=== PATIENT | male | born 1935 | race Caucasian/White ===

== ENCOUNTER 2018-12-11 06:11 | Day surgery (SDC) | payer MEDICARE, BC ==
[~2018-12-11] VITALS: Ht 175.3 cm; Wt 86.0 kg
[~2018-12-11 06:11] MED LIST: CENTRUM SILVER1 EAC2 PO; FISH OIL 1,001000 MG PO; Magnesium200 MG PO; PROBIOTIC1 EAC1 PO
--- NOTE | 2018-12-11 09:32 | NUR ---
PT TO RECOVERY ROOM POST PROCEDURE VIA RECLINER. PT AWAKE, ORIENTED AND ANSWERING QUESTIONS APPROPRIATELY. PT DENIES PAIN/DISCOMFORT, SOB OR NAUSEA. MONITOR V PACED 60'S, B/P 159/84, SPO2 96% RA. L CHEST PACEMKAER SITE, NO SWELLING/HEMATOMA, PRESSURE DRSG IN PLACE C,D,I. PT TAKING SIPS OF H2O WITHOUT PROBLEM.
--- NOTE | 2018-12-11 11:50 | NUR ---
DRESSED SELF WITHOUT PROBELM, PRESSURE DRESSING REMOVED, SITE SOFT, NO DRAINAGE. PT RECEIVED DISCHARGE INSTRUCTIONS, MED LIST, AND SUPPLEMENTAL EDUCATION RESOURCES; VERBALIZED GOOD UNDERSTANDING.
--- NOTE | 2018-12-11 12:14 | NUR ---
HERE TO PROGRAMMER NUMERICAL CONTROL PT, DISCHARGE INSTRUCTIONS REVIEWED WITH PT AND ; IV REMOVED; CANNULA INTACT. PT LEFT FACILITY VIA W/C WITH , CONDITION STABLE.
== END 2018-12-11 12:14 | disposition home or self-care (01) ==
LOC: MHTC 06:11
DX: I44.2 Atrioventricular block, complete (principal); Z79.899 Other long term (current) drug therapy
CPT/HCPCS: 33207; 33208; 71046; 93005; 93010; 99152; 99153; C1785; C1898; J0690; J1644; J2250; J3010; J7030; J7040

== ENCOUNTER 2019-02-24 07:43 | Day surgery (SDC) | payer MEDICARE, BC ==
[~2019-02-24] VITALS: Ht 175.3 cm; Wt 86.3 kg
[2019-02-24] MEDS ORDERED: Amiodarone HCl200 MG PO (09:02)
[2019-02-24] MEDS ORDERED: ELIQUIS5 MG PO (09:02)
--- NOTE | 2019-02-24 10:54 | NUR ---
PT ALERT, AWAKE, AND TALKING TO STAFF. PRESENT IN ROOM. SALINE LOCK OUT WITH CATHETER INTACT. DISCHARGE GONE OVER WITH AND PT, BOTH VERBALIZE UNDERSTANDING. VSS. PT TO PRIVATE VEHICLE PER W/C WITH ONE STAFF.
== END 2019-02-24 22:44 | disposition home or self-care (01) ==
LOC: MHTC 07:43
DX: I48.92 Unspecified atrial flutter (principal); I48.91 Unspecified atrial fibrillation; J90 Pleural effusion, not elsewhere classified; I44.2 Atrioventricular block, complete; Z79.01 Long term (current) use of anticoagulants; Z95.0 Presence of cardiac pacemaker
CPT/HCPCS: 92960; 93005; 93010; J2250; J2704; J7030

== ENCOUNTER 2020-10-14 10:21 | Day surgery (SDC) | payer MEDICARE, BC ==
[~2020-10-14] VITALS: Ht 172.7 cm; Wt 88.3 kg
[~2020-10-14 10:21] MED LIST changes: +Amiodarone HCl200 MG PO; +ELIQUIS5 MG PO
--- NOTE | 2020-10-14 10:47 | NUR ---
10/14/20 1047 Patria Hernadez [address] 1042 PLEDGET BOTH PLACED BY [facility].CB
== END 2020-10-14 12:24 | disposition home or self-care (01) ==
LOC: ORSCSDS 10:21
PROVIDERS: Ophthalmology
PROC: 08RK3JZ Replacement of Left Lens with Synthetic Substitute, Percutaneous Approach (ICD-10-PCS; principal; 2020-10-14 11:45)
DX: H25.12 Age-related nuclear cataract, left eye (principal); H21.81 Floppy iris syndrome; Z87.891 Personal history of nicotine dependence
CPT/HCPCS: J2001; J2250; J3010; J3301; J7040; V2632